=== PATIENT | male | born 1975 | race Caucasian/White ===

== ENCOUNTER 2019-09-15 06:58 | Day surgery (SDC) | payer MEDICAID ==
[2019-09-15] MEDS ORDERED: MIDAZOLAM 2 MG/2 ML VIAL IVP ONE (06:59)
[2019-09-15] MEDS ORDERED: NEOSTIGMINE 1 MG/1 ML 10 ML MDV IVP ONE (06:59)
[2019-09-15] MEDS ORDERED: ROCURONIUM 50 MG/5 ML VIAL IVP ONE (06:59)
[2019-09-15] MEDS ORDERED: DEXAMETHASONE 4 MG/ML VIAL IVP ONE (06:59)
[2019-09-15] MEDS ORDERED: GLYCOPYRROLATE 1 MG/5 ML VIAL IVP ONE (06:59)
[2019-09-15] MEDS ORDERED: PROPOFOL 200 MG/20 ML VIAL IVP ONE (06:59)
[2019-09-15] MEDS ORDERED: KETOROLAC 30 MG/ML VIAL IVP ONE (06:59)
[2019-09-15] MEDS ORDERED: LACTATED RINGERS 1,000 ML IV ONE ×3 (07:14→11:32)
--- NOTE | 2019-09-15 07:46 | ANESTHESIA ---
Pre-Anesthesia VS, & Labs - Diagnosis Bilateral Inguinal Hernias - Procedure Laparoscopic Bilateral Inguinal Hernia repairs Vital Signs: Temp Pulse Resp BP Pulse Ox 36.5 C 63 16 122/90 H 97 09/15/19 07:14 09/15/19 07:14 09/15/19 07:14 09/15/19 07:14 09/15/19 07:14 Height 6 ft 1 in Weight (kg) 82.1 kg - NPO >8 hours Home Medications and Allergies Home Medications: Ambulatory Orders Fluticasone [Flonase] 1 sprays AWILDA DAILY 09/07/19 Ibuprofen [Motrin] 600 mg PO Q6H PRN 09/07/19 Fluticasone [Flonase] 1 sprays AWILDA DAILY 09/07/19 Ibuprofen [Motrin] 600 mg PO Q6H PRN 09/07/19 Allergies/Adverse Reactions: Allergies Allergy/AdvReac Type Severity Reaction Status Date / Time No Known Drug Allergies Allergy Verified 09/07/19 10:46 Anes History & Medical History - Anesthetic History Anesthesia Complications: reports: No previous complications - Medical History Cardiovascular: reports: None Pulmonary: reports: Asthma (childhood) Gastrointestinal: reports: GERD (controlled with diet) Urinary: reports: None Neuro: reports: None Musculoskeletal: reports: Osteoarthritis, Chronic back pain Endocrine/Autoimmune: reports: None Blood Disorders: reports: None Skin: reports: None Smoking Status: Former smoker (quit 3 years ago) Psychosocial: reports: Cannabis (2x per week) - Surgical History Orthopedic: Other (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
[2019-09-15] MEDS ORDERED: CEFAZOLIN SODIUM IN 0.9 % NACL 2 GM/100 ML BAG IV ONE (07:55)
[2019-09-15] MEDS ORDERED: BUPIVACAINE 0.5% PF 30 ML VIAL ONE (08:43)
[2019-09-15] MEDS ORDERED: BUPIVACAINE 0.5% PF 30 ML VIAL INFIL ONE (09:20)
[2019-09-15] MEDS ORDERED: ONDANSETRON 4 MG/2 ML VIAL IVP PRN (11:21)
[2019-09-15] MEDS ORDERED: oxyCODONE 5 MG TABLET PO PRN (11:21)
[2019-09-15] MEDS ORDERED: HYDROmorphone 0.5 MG/0.5 ML SYRINGE IVP PRN (11:21)
--- NOTE | 2019-09-15 11:26 | OPERATIVE REPORT ---
Operative Report - General Planned Procedure: Laparoscopic bilateral inguinal herniorrhaphy Pre-Op Diagnosis: Bilateral inguinal hernia Procedure Performed: Laparoscopic bilateral direct inguinal herniorrhaphy with left inguinal incision to confirm anatomy Post Op Diagnosis: Bilateral direct inguinal hernias - Procedure Note Primary Surgeon: Antwon Ward MD Anesthesia Provider: Lizzeth Keene CRNA Anesthesia Technique: General ET tube, Local (30 mL of half percent Marcaine) IV Fluids (mL): 1,000 Estimated Blood Loss (mL): 5 Drain/Tube Type: Other (None.) Complications: None. - Other Other Information/Narrative: OPERATIVE DESCRIPTION/REPORT: After verbal and written informed consent was obtained detailing the risks of infection, bleeding requiring transfusion with its risks, nerve injury, and , and after I met with the patient confirming the surgery and the site of the surgery, the patient was brought to the operative suite and placed supine on the operating table. Great care was taken to avoid pressure points to prevent pressure necrosis or nerve injury. Monitoring devices were applied along with TEDs and pneumatic compressive stockings (to prevent DVT). The patient received preoperative antibiotics for surgical prophylaxis. Lizzeth Keene CRNA sedated and induced general anesthesia and provided anesthesia care for the entirety of the case. The patient was prepped and draped in the usual sterile manner. The patient was not marked preoperatively since this was a bilateral procedure and laparoscopic. A "time in" then confirmed that the patient was identified with 3 identifiers (name, date and medical record number), the history and physical was in the chart, the signed consent confirming the procedure was in the chart, the patient was in the correct position, the aforementioned prophylactic measures were in place or given, we had the correct personnel and equipment to complete the procedure and that anesthesia, surgery and nursing were given an opportunity to express any concerns. With the agreement of everyone in the room, we proceeded with the operation. A transverse skin incision was made below and to the right of the umbilicus to a length of approximately 3 cm. The incision was carried through the subcutaneous tissue. Bleeders were cauterized. The right rectus sheath was identified and incised lateral to the midline. The preperitoneal space was then developed following insertion of a Spacemaker balloon, which was inflated under direct vision. Following removal of the Spacemaker balloon, a #10 trocar was placed in the preperitoneal space and the preperitoneal space was insufflated with CO2 to a steady state pressure of 15 mmHg. A 10 mm 30 degree laparoscope was inserted in the preperitoneal space. Two #5 trocars were placed 5 cm below the umbilical incision under direct vision medical to the inferior epigastric arteries and without incident. Landmarks including symphysis pubis, right and left José Antonio ligaments and right and left inferior epigastric vessels were identified. Dissection was then continued lateral to the transverse abdominis muscle bilaterally. The right side was addressed first. The internal ring was then explored for the presence of the indirect hernia sac and despite extensive dissection no indirect hernia was found. Exploration of the medial space showed a medial defect consistent with a direct hernia. The left side was then addressed. Again there was the presence of a direct inguinal hernia . However there was a large amount of abnormal tissue in around a potential indirect inguinal hernia site and despite extensive dissection I could not clarify whether or not there was an indirect hernia as well. Due to the unclear anatomy I decided to incise the left inguinal region and dissected down to the canal the way I would normally fix the hernia in an open fashion. This allowed me to determine that there was a very large direct inguinal hernia and no left indirect inguinal hernia. I also remembered that the patient had an undescended testicle on the left and that intervention was required for this when he was in the fourth grade. This is a likely source of the "abnormal" tissue in the inguinal region. As I was reassured that there was no left indirect inguinal hernia I proceeded with the repair. The mesh on the right-hand side was placed first. The mesh used was Covidien ProGrip (Lot # [id number], reference# [id number], use by date 2022-02-26). This mesh was placed to cover the direct inguinal hernia as well as any potential indirect hernia. The mesh was then placed on the left-hand side. The mesh used was [employer]ien ProGrip (Lot # [id number], reference# [id number], use by date 2021-06-28). Again, this mesh was placed to cover the direct inguinal hernia as well as a potential indirect hernia, however I was concerned about the mesh riding down and leaving some of the direct hernia uncovered so I tacked the mesh above the direct hernia with a SecureStrap tacker (Lot # [id number], use by date 2020-02). 3 tacks were placed and none were placed laterally. 10 mL of 1/2% Marcaine was injected into the preperitoneal space, 10 mL of 1/2% Marcaine was injected into the left inguinal incision and then remaining 10 mL at the remaining laparoscopic incisions. The preperitoneal space was then deflated and during the deflation the mesh was watched to ensure that it was sandwiched nicely in place and did not change position. All trocars were withdrawn. The defect in the rectus sheath was closed with two simple 0 Vicryl sutures and a [id number] 0 Vicryl suture. The external oblique was closed using a running 3-0 Vicryl suture. Robin's fascia was approximated using interrupted 3-0 Vicryl suture and the skin was approximated using a 4-0 Monocryl in a running subcuticular fashion. The laparoscopic skin incisions were closed with subcuticular 4-0 Monocryl suture. The prep was washed off and Dermabond was applied at all the incisions. At this point a time out was performed that confirmed that all the counts were correct, the procedure that was performed, the blood loss, the IV fluids administered, and the patients condition. The patient's scrotum was evaluated to ensure that the testicles were well seated within the scrotum and that there was no swelling. [employer] disclaimer: This document was created in part using voice recognition technology. Because of the inherent limitations of the system ([employer]'s [employer] D[employer]ate user manual states that the licensee understands that speech recognition is a statistical process and that recognition errors are inherent in the process), occasional same sounding word substitutions and grammatical errors do occur and persist despite proofreading. Please read this document for context.
[2019-09-15 12:21] VITALS: BP 111/77
[2019-09-15] MEDS ORDERED: oxyCODONE 5 MG TABLET ONE (12:27)
== END 2019-09-15 06:59 | disposition home or self-care (01) ==
LOC: SDS 06:58
PROVIDERS: ATTEND Surgery
PROC: 0YUA4JZ Supplement Bilateral Inguinal Region with Synthetic Substitute, Percutaneous Endoscopic Approach (ICD-10-PCS; principal; 2019-09-15 08:30)
DX: K40.20 Bilateral inguinal hernia, without obstruction or gangrene, not specified as recurrent (principal); Z87.891 Personal history of nicotine dependence
CPT/HCPCS: 49650; A9270; C1781; J0690; J7120

== ENCOUNTER 2020-09-30 16:21 | Outpatient (CLI) | payer MEDICAID | END 2020-09-30 16:22 | disposition home or self-care (01) | LOC: COV 16:21 | PROVIDERS: ATTEND Family Medicine | DX: Z20.828 Contact with and (suspected) exposure to other viral communicable diseases (principal) ==

== ENCOUNTER 2021-04-07 08:00 | Outpatient (CLI) | payer MEDICAID ==
[2021-04-07 18:14] LABS: BASOPHILS % (AUTO) 0.5 %; EOSINOPHILS # (AUTO) 0.1 10^3/uL (0.0-0.7); EOSINOPHILS % (AUTO) 1.7 %; HCT - HEMATOCRIT 41.5 % (42.0-52.0); LYMPHOCYTES # (AUTO) 1.1 10^3/uL (1.5-3.5); LYMPHOCYTES % (AUTO) 16.8 %; MEAN CORPUSCULAR HEMOGLOBIN 29.9 pg (27.0-31.0); MEAN CORPUSCULAR HGB CONC 33.7 g/dL (32.0-36.0); MEAN CORPUSCULAR VOLUME 88.5 fL (80.0-94.0); MEAN PLATELET VOLUME 10.3 fL (7.4-11.4); MONOCYTES # (AUTO) 0.4 10^3/uL (0.0-1.0); MONOCYTES % (AUTO) 5.9 %; NEUTROPHILS % (AUTO) 74.8 %; PLT - PLATELET COUNT 251 10^3/uL (130-450); RED BLOOD COUNT 4.69 10^6/uL (4.70-6.10); RED CELL DISTRIBUTION WIDTH 12.3 % (12.0-15.0); WHITE BLOOD COUNT 6.7 x10^3/uL (4.8-10.8)
[2021-04-07 18:58] LABS: ALBUMIN 4.5 g/dL (3.2-5.5); ALBUMIN/GLOBULIN RATIO 1.6 (1.0-2.2); ALKALINE PHOSPHATASE 61 IU/L (42-121); ALT ALANINE AMINOTRANSFERASE 19 IU/L (10-60); AST ASPARTATE AMINOTRANSFERASE 20 IU/L (10-42); BUN - BLOOD UREA NITROGEN 12 mg/dL (6-20); CALCIUM 8.9 mg/dL (8.5-10.3); CARBON DIOXIDE - CO2 28 mmol/L (21-32); CHLORIDE 101 mmol/L (101-111); CHOL/HDL RATIO 2.5 (<5.0); CHOLESTEROL 127 mg/dL; CREATININE 0.8 mg/dL (0.6-1.2); GFR - MDRD 105 (>89); GLUCOSE 94 mg/dL (70-100); HDL CHOLESTEROL 50 mg/dL; LDL CHOLESTEROL,CALCULATED 67 mg/dL; LDL/HDL RATIO 1.3 (<3.6); POTASSIUM 4.3 mmol/L (3.5-5.0); SODIUM 138 mmol/L (135-145); TOTAL PROTEIN 7.4 g/dL (6.7-8.2); TRIGLYCERIDES 50 mg/dL; VLDL CHOLESTEROL 10 mg/dL
[2021-04-07 19:08] LABS: THYROID STIMULATING HORMONE 1.55 uIU/mL (0.34-5.60)
== END 2021-04-07 23:59 | disposition home or self-care (01) ==
LOC: LAB.WCP 08:00
PROVIDERS: ATTEND Physician Assistant
DX: K59.09 Other constipation (principal); Z79.1 Long term (current) use of non-steroidal anti-inflammatories (NSAID); J30.2 Other seasonal allergic rhinitis; Z87.19 Personal history of other diseases of the digestive system; R10.30 Lower abdominal pain, unspecified; R10.2 Pelvic and perineal pain; K40.90 Unilateral inguinal hernia, without obstruction or gangrene, not specified as recurrent
CPT/HCPCS: 36415; 80053; 80061; 83721; 84443; 85025

== ENCOUNTER 2021-05-23 10:04 | Day surgery (SDC) | payer MEDICAID ==
[2021-05-23] MEDS ORDERED: LACTATED RINGERS 1,000 ML IV ONE (10:12)
--- NOTE | 2021-05-23 12:56 | HISTORY & PHYSICAL EXAMINATION ---
Chief Complaint - Chief Complaint Chief Complaint: abdominal pain History of Present Illness - History Obtained From Records Reviewed: yes History obtained from: pt Exam Limitations: none - History of Present Illness HPI Comment/Other: Lower abdominal discomfort and mild anemia History - Past Medical History Cardiovascular: reports: None Respiratory: reports: Asthma Neuro: reports: None Endocrine/Autoimmune: reports: None GI: reports: GERD : reports: None HEENT: reports: Chronic sinusitis Psych: reports: None Musculoskeletal: reports: Osteoarthritis, Chronic back pain Derm: reports: None MRSA Hx?: No - Past Surgical History Ortho: reports: Other Meds/Allgy - Home Medications Home Medications: Ambulatory Orders Medication Instructions Recorded Confirmed Fluticasone [Flonase] 1 sprays AWILDA DAILY 09/07/19 05/23/21 Ibuprofen [Motrin] 600 mg PO Q6H PRN 09/07/19 05/23/21 - Allergies Allergies/Adverse Reactions: Allergies Allergy/AdvReac Type Severity Reaction Status Date / Time No Known Drug Allergies Allergy Verified 09/07/19 10:46 Review of Systems - Other Findings Other Findings: 10 pt ros as above otherwise unremarkable Exam - Vital Signs Reviewed Vital Signs: Yes Vital Signs: Vital Signs x48h Temp Pulse Resp BP Pulse Ox 05/23/21 10:13 36.5 C 64 16 114/73 97 - Physical Exam General Appearance: positive: Alert Eyes Bilateral: positive: PERRL, EOMI Neck: positive: No JVD Respiratory: positive: Breath sounds nml Cardiovascular: positive: Regular rate & rhythm Abdomen: positive: Non-tender, No distention Neurologic/Psychiatric: positive: Oriented x3 Conclusion/Plan - Problem List (1) Abdominal discomfort Conclusion/Plan: plan colonoscopy. parq held and consent obtained
[2021-05-23] MEDS ORDERED: fentaNYL 250 MCG/5 ML VIAL ONE (13:08)
[2021-05-23] MEDS ORDERED: MIDAZOLAM 2 MG/2 ML VIAL ONE ×4 (13:08→13:42)
[2021-05-23] MEDS ORDERED: PROPOFOL 200 MG/20 ML VIAL IVP ONE (14:17)
[2021-05-23] MEDS ORDERED: LACTATED RINGERS 400 ML IV ONE (14:19)
[2021-05-23 14:45] VITALS: BP 101/76
--- NOTE | 2021-05-23 16:06 | ANESTHESIA ---
Pre-Anesthesia VS, & Labs - Diagnosis change in bowel habits - Procedure colonoscopy with polypectomy Vital Signs: Temp Pulse Resp BP Pulse Ox 36.3 C L 54 L 16 101/76 99 05/23/21 14:19 05/23/21 14:40 05/23/21 14:40 05/23/21 14:40 05/23/21 14:40 Height: 6 ft 1 in Weight (kg): 78 kg Body Mass Index: 22.6 BMI Classification: Healthy weight - NPO >8 hours Home Medications and Allergies Fluticasone [Flonase] 1 sprays AWILDA DAILY 09/07/19 Ibuprofen [Motrin] 600 mg PO Q6H PRN 09/07/19 Allergies/Adverse Reactions: Allergies Allergy/AdvReac Type Severity Reaction Status Date / Time No Known Drug Allergies Allergy Verified 09/07/19 10:46 Anes History & Medical History - Medical History Cardiovascular: reports: None Pulmonary: reports: Asthma Gastrointestinal: reports: GERD Urinary: reports: None Neuro: reports: None Musculoskeletal: reports: Osteoarthritis, Chronic back pain Endocrine/Autoimmune: reports: None Blood Disorders: reports: None Skin: reports: None Smoking Status: Former smoker (quit 3 years ago) Psychosocial: reports: Cannabis Other Past Medical History: called for rescue sedation. History obtained from medical record - Surgical History Orthopedic: reports: Other Exam General: Other (sedated) Plan Anesthesia Type: Total IV (Rescue sedation. Patient has received 10mg versed and 250mcg fentanyl DOG RACES MANAGER.) Consent for Procedure(s) Verified and Reviewed: Yes Code Status: Attempt Resuscitation ASA classification: 2-Mild systemic disease Is this case an emergency?: No
--- NOTE | 2021-05-23 16:07 | ANESTHESIA POST OP EVALUATION ---
Anesthesia Post Eval - Post Anesthesia Eval Vitals: Last Vital Signs Temp 36.3 C L 05/23/21 14:19 Pulse 54 L 05/23/21 14:40 Resp 16 05/23/21 14:40 BP 101/76 05/23/21 14:40 Pulse Ox 99 05/23/21 14:40 CV Function Including HR & BP: Stable Pain Control: Satisfactory Nausea & Vomiting: Negative Mental Status: Baseline Respiratory Status: Airway Patent Hydration Status: Satisfactory Anesthesia Complications: None
== END 2021-05-23 10:05 | disposition home or self-care (01) ==
LOC: SDS 10:04
PROVIDERS: ATTEND Surgery
PROC: 0DBN8ZZ Excision of Sigmoid Colon, Via Natural or Artificial Opening Endoscopic (ICD-10-PCS; 2021-05-23)
PROC: 0DBP8ZZ Excision of Rectum, Via Natural or Artificial Opening Endoscopic (ICD-10-PCS; 2021-05-23)
PROC: 0DBN8ZZ Excision of Sigmoid Colon, Via Natural or Artificial Opening Endoscopic (ICD-10-PCS; 2021-05-23)
PROC: 0DBK8ZZ Excision of Ascending Colon, Via Natural or Artificial Opening Endoscopic (ICD-10-PCS; principal; 2021-05-23 11:00)
DX: D12.2 Benign neoplasm of ascending colon (principal); D12.5 Benign neoplasm of sigmoid colon; K63.5 Polyp of colon; K62.1 Rectal polyp; K57.30 Diverticulosis of large intestine without perforation or abscess without bleeding; K21.9 Gastro-esophageal reflux disease without esophagitis; J45.909 Unspecified asthma, uncomplicated; J32.9 Chronic sinusitis, unspecified; M19.90 Unspecified osteoarthritis, unspecified site; G89.29 Other chronic pain; M54.9 Dorsalgia, unspecified; Z87.891 Personal history of nicotine dependence; Z92.83 Personal history of failed moderate sedation
CPT/HCPCS: 45380; 45385; 88305; J3010; J7120

== ENCOUNTER 2023-01-14 16:41 | Emergency (ER) | payer MEDICAID ==
[2023-01-14 16:49] VITALS: BP 139/89
--- NOTE | 2023-01-14 17:08 | ED Physician Documentation ---
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 He states that he usually uses a push theresa when he gets near the blade and he has been trying out some new glasses and he believes his depth perception may be off. He was able to control the bleeding with direct pressure and comes in now for evaluation and is not up-to-date on his tetanus. 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 Review of Systems Constitutional: denies: Fever Nose: denies: Congestion Throat: denies: Sore throat Respiratory: denies: Cough GI: denies: Vomiting PD PAST MEDICAL HISTORY - Past Medical History Cardiovascular: None Respiratory: Asthma Neuro: None Endocrine/Autoimmune: None GI: GERD : None HEENT: Chronic sinusitis Psych: None Musculoskeletal: Osteoarthritis, Chronic back pain Derm: None - Past Surgical History Ortho: Other - Present Medications Home Medications: Ambulatory Orders Medication Instructions Recorded Confirmed Fluticasone [Flonase] 1 sprays AWILDA DAILY 09/07/19 05/23/21 Ibuprofen [Motrin] 600 mg PO Q6H PRN 09/07/19 05/23/21 - Allergies Allergies/Adverse Reactions: Allergies Allergy/AdvReac Type Severity Reaction Status Date / Time No Known Drug Allergies Allergy Verified 09/07/19 10:46 - Social History Smoking Status: Former smoker (quit 3 years ago) PD ED PE NORMAL - Vitals Vital signs reviewed: Yes (hypertensive ) - General General: Alert and oriented X 3, No acute distress, Well developed/nourished - HEENT HEENT: Atraumatic, PERRL, EOMI - Respiratory Respiratory: No respiratory distress - Derm Derm: Normal color, Warm and dry, No rash - Extremities Extremities: Other (To the right hand there is a laceration to the radial aspect of the thumb distally that involves the skin of of the skin next to the nail. 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, No motor deficit, No sensory deficit, Normal speech Eye Opening: Spontaneous Motor: Obeys Commands Verbal: Oriented GCS Score: 15 - Psych Psych: Normal mood, Normal affect Results - Vitals Vitals: Vital Signs - 24 hr 01/14/23 16:46 Temperature 36.7 C Heart Rate 80 Respiratory 18 Rate Blood Pressure 139/89 H O2 Saturation 98 Oxygen O2 Source Room air Procedures - Laceration (location) left thumb Wound type: Flap, Superficial, Clean Neurovascular status: Sensory intact, Motor intact, Vascular intact Wound preparation: Hibiclens, Irrigated copiously NS, Wound explored, To the base Skin layer closure: Dermabond, Steri strips Other: Patient tolerated well, No complications, Neurovascular intact, Dressing applied, Tetanus booster given PD Medical Decision Making - ED course Complexity details: considered differential, d/w patient, d/w family ED course: 47-year-old male with a superficial laceration of the flap of skin to the radial aspect of the right thumb. This is repaired with tincture of benzoin, Steri- Strips and Dermabond. The patient is given a tetanus booster. Departure - Departure Disposition: 01 Home, Self Care Clinical Impression: Laceration of right thumb Qualifiers: Encounter type: initial encounter Damage to nail status: without damage Foreign body presence: without foreign body Qualified Code(s): S61.011A - Laceration without foreign body of right thumb without damage to nail, initial encounter Condition: Stable Instructions: ED Laceration Ext Skin Glue, ED Laceration Ext Sutr Stap Tape Follow-Up: [facility] [Provider Group] Comments: Jose, today it looks like you are isabel and only have a superficial laceration to your thumb. This may hurt and may take a week or so to heal but will heal up fine. The wound is held together now with steri-strips and Dermabond and these will wear off in about 5 to 6 days. If you use your hands a lot it may come off within the day. If this happens place a Band-Aid over the finger and eventually this will heal. Keep it clean and dry.
[2023-01-14] MEDS ORDERED: TETANUS/DIPHTHERIA/PERTUSSIS 0.5 ML SYRINGE IM ONE (17:13)
--- OUTSIDE RECORDS SUMMARY | 2023-01-14 17:25 | EXTERNAL MEDICAL SUMMARY RPT | Continuity of Care Document ---
:1975 Author Organization [facility] Address [address] [place] [address] Phone Care Team Providers Name Role Phone Rubia Kamara Unavailable Unavailable Allergies No information. Encounters No information. Functional Status No information. Immunizations No information. Medications date description facility 2023-01-01 00:00 Fluticasone [facility] Problems date description facility 2023-01-01 00:00 [facility] 2023-01-01 00:00 [facility] Procedures No information. Results/Labs test date author facility value unit interpret ation Result panel 1 (unknown) (no (unknown) (unknown) (no value) (units (unk nown) date) unknown) (unknown) (no (unknown) (unknown) 12/21/22 (units (unkno wn) date) unknown) (unknown) (no (unknown) (unknown) [id number] (units (unkno wn) date) unknown) (unknown) (no (unknown) (unknown) Age/Sex: 47 / M (units (unknown) date) Date of Service: unknown) (unknown) (no (unknown) (unknown) Allergies (units (unkn own) date) unknown) (unknown) (no (unknown) (unknown) [facility] (units (unknown) date) Medicine unknown) (unknown) (no (unknown) (unknown) [place] (units ( unknown) date) [id number] unknown) (unknown) (no (unknown) (unknown) Attending Dr: (units ( unknown) date) Rubia Kamara unknown) NURSING CARE ATTENDANT (unknown) (no (unknown) (unknown) : 1975 (units (unknown) date) Acct:[id number] unknown) (unknown) (no (unknown) (unknown) Dept at (units (unkno wn) date) . unknown) (unknown) (no (unknown) (unknown) Documented By: (units (unknown) date) Rubia Kamara unknown) [facility] 12/21/22 1347 (unknown) (no (unknown) (unknown) Draft (units (unkno wn) date) unknown) (unknown) (no (unknown) (unknown) Intake Note: (units (u nknown) date) unknown) (unknown) (no (unknown) (unknown) Intake performed (units (unknown) date) by: unknown) Armando Roe (unknown) (no (unknown) (unknown) Intake (units (unkno wn) date) unknown) (unknown) (no (unknown) (unknown) Intake- Clincial (units (unknown) date) Staff unknown) (unknown) (no (unknown) (unknown) Loc: [facility] (units (unkno wn) date) unknown) (unknown) (no (unknown) (unknown) Medications (units (un known) date) unknown) (unknown) (no (unknown) (unknown) No Known Drug (units ( unknown) date) Allergies Allergy unknown) (Unverified 12/21/22 13:49) (unknown) (no (unknown) (unknown) No Known Home (units ( unknown) date) Medications unknown) 12/21/22 [History Confirmed 12/21/22] (unknown) (no (unknown) (unknown) PFSH (units (unkno wn) date) unknown) (unknown) (no (unknown) (unknown) Patient: (units (unkno wn) date) Jose Cevallos unknown) MR#: [id number] (unknown) (no (unknown) (unknown) Pt presents with (units (unknown) date) a possible sinus unknown) infection. Was over a cold and this morning (unknown) (no (unknown) (unknown) Reason For Visit (units (unknown) date) unknown) (unknown) (no (unknown) (unknown) Signed By: (units (unk nown) date) unknown) (unknown) (no (unknown) (unknown) Smoking Status: (units (unknown) date) Former smoker unknown) (unknown) (no (unknown) (unknown) This note may (units ( unknown) date) have been all or unknown) partially generated using voice recognition (unknown) (no (unknown) (unknown) Tobacco + (units (unkn own) date) Substance Use unknown) (unknown) (no (unknown) (unknown) Tobacco Status (units (unknown) date) unknown) (unknown) (no (unknown) (unknown) Visit Reasons: (units (unknown) date) poss sinus unknown) infection (unknown) (no (unknown) (unknown) [facility] In Clinic (units (unknown) date) Visit unknown) (unknown) (no (unknown) (unknown) have occurred. (units (unknown) date) If there are any unknown) questions, please contact the Medical Records (unknown) (no (unknown) (unknown) may occur. (units (unk nown) date) Occasional unknown) wrong-word or 'sound-alike' substitutions may have (unknown) (no (unknown) (unknown) occurred due to (units (unknown) date) the inherent unknown) limitations of voice recognition software. Please (unknown) (no (unknown) (unknown) read the note (units ( unknown) date) carefully and unknown) recognize, using context, where these substitutions (unknown) (no (unknown) (unknown) software. (units (unkn own) date) Although every unknown) effort is made to edit content, director of sales support errors (unknown) (no (unknown) (unknown) woke up with (units (u nknown) date) mucus. unknown) Result panel 2 (unknown) (no (unknown) (unknown) (no value) (units (unk nown) date) unknown) (unknown) (no (unknown) (unknown) 12/21/22 (units (unkno wn) date) unknown) (unknown) (no (unknown) (unknown) 13:55 (units (unkno wn) date) unknown) (unknown) (no (unknown) (unknown) [id number] (units (unkno wn) date) unknown) (unknown) (no (unknown) (unknown) Age/Sex: 47 / M (units (unknown) date) Date of Service: unknown) (unknown) (no (unknown) (unknown) Allergies (units (unkn own) date) unknown) (unknown) (no (unknown) (unknown) [facility] (units (unknown) date) Medicine unknown) (unknown) (no (unknown) (unknown) [place], [place] (units ( unknown) date) [id number] unknown) (unknown) (no (unknown) (unknown) Attending Dr: (units ( unknown) date) Rubia Kamara unknown) NURSING CARE ATTENDANT (unknown) (no (unknown) (unknown) BMI 23.8 (units (unkno wn) date) unknown) (unknown) (no (unknown) (unknown) BP 124/80 (units (unkn own) date) unknown) (unknown) (no (unknown) (unknown) Blood Pressure (units (unknown) date) Location Lt unknown) brachial (unknown) (no (unknown) (unknown) : 1975 (units (unknown) date) Acct:[id number] unknown) (unknown) (no (unknown) (unknown) Dept at (units (unkno wn) date) . unknown) (unknown) (no (unknown) (unknown) Documented By: (units (unknown) date) Rubia Kamara unknown) NURSING CARE ATTENDANT 12/21/22 1347 (unknown) (no (unknown) (unknown) Draft (units (unkno wn) date) unknown) (unknown) (no (unknown) (unknown) Height 6 ft 2 in (units (unknown) date) unknown) (unknown) (no (unknown) (unknown) Intake Note: (units (u nknown) date) unknown) (unknown) (no (unknown) (unknown) Intake performed (units (unknown) date) by: unknown) Armando Roe (unknown) (no (unknown) (unknown) Intake (units (unkno wn) date) unknown) (unknown) (no (unknown) (unknown) Intake- Clincial (units (unknown) date) Staff unknown) (unknown) (no (unknown) (unknown) Loc: [facility] (units (unkno wn) date) unknown) (unknown) (no (unknown) (unknown) Medications (units (un known) date) unknown) (unknown) (no (unknown) (unknown) No Known Drug (units ( unknown) date) Allergies Allergy unknown) (Unverified 12/21/22 13:49) (unknown) (no (unknown) (unknown) No Known Home (units ( unknown) date) Medications unknown) 12/21/22 [History Confirmed 12/21/22] (unknown) (no (unknown) (unknown) Oxygen Delivery (units (unknown) date) Method room air unknown) (unknown) (no (unknown) (unknown) [facility] (units (unkno wn) date) unknown) (unknown) (no (unknown) (unknown) Patient: (units (unkno wn) date) Jose Cevallos unknown) MR#: [id number] (unknown) (no (unknown) (unknown) Position Sitting (units (unknown) date) unknown) (unknown) (no (unknown) (unknown) Pt presents with (units (unknown) date) a possible sinus unknown) infection. Was over a cold and this morning (unknown) (no (unknown) (unknown) Pulse 54 L (units (unk nown) date) unknown) (unknown) (no (unknown) (unknown) Pulse Oximetry (units (unknown) date) (%) 99 unknown) (unknown) (no (unknown) (unknown) Pulse Source (units (u nknown) date) Monitor unknown) (unknown) (no (unknown) (unknown) Reason For Visit (units (unknown) date) unknown) (unknown) (no (unknown) (unknown) Respiration 14 (units (unknown) date) unknown) (unknown) (no (unknown) (unknown) Signed By: (units (unk nown) date) unknown) (unknown) (no (unknown) (unknown) Smoking Status: (units (unknown) date) Former smoker unknown) (unknown) (no (unknown) (unknown) Temp 97.8 F (units (un known) date) unknown) (unknown) (no (unknown) (unknown) Temp Source Oral (units (unknown) date) unknown) (unknown) (no (unknown) (unknown) This note may (units ( unknown) date) have been all or unknown) partially generated using voice recognition (unknown) (no (unknown) (unknown) Tobacco + (units (unkn own) date) Substance Use unknown) (unknown) (no (unknown) (unknown) Tobacco Status (units (unknown) date) unknown) (unknown) (no (unknown) (unknown) Visit Reasons: (units (unknown) date) poss sinus unknown) infection (unknown) (no (unknown) (unknown) Vitals (units (unkno wn) date) unknown) (unknown) (no (unknown) (unknown) Walk In Clinic (units (unknown) date) Visit unknown) (unknown) (no (unknown) (unknown) Weight 185 lb 3 (units (unknown) date) oz unknown) (unknown) (no (unknown) (unknown) have occurred. (units (unknown) date) If there are any unknown) questions, please contact the Medical Records (unknown) (no (unknown) (unknown) may occur. (units (unk nown) date) Occasional unknown) wrong-word or 'sound-alike' substitutions may have (unknown) (no (unknown) (unknown) occurred due to (units (unknown) date) the inherent unknown) limitations of voice recognition software. Please (unknown) (no (unknown) (unknown) read the note (units ( unknown) date) carefully and unknown) recognize, using context, where these substitutions (unknown) (no (unknown) (unknown) software. (units (unkn own) date) Although every unknown) effort is made to edit content, director of sales support errors (unknown) (no (unknown) (unknown) woke up with (units (u nknown) date) mucus. unknown) Result panel 3 (unknown) (no (unknown) (unknown) (no value) (units (unk nown) date) unknown) (unknown) (no (unknown) (unknown) (1) Sinus (units (unkn own) date) congestion: unknown) (unknown) (no (unknown) (unknown) 12/21/22 1424 (units ( unknown) date) unknown) (unknown) (no (unknown) (unknown) 12/21/22 (units (unkno wn) date) unknown) (unknown) (no (unknown) (unknown) 13:55 (units (unkno wn) date) unknown) (unknown) (no (unknown) (unknown) [id number] (units (unkno wn) date) unknown) (unknown) (no (unknown) (unknown) Age/Sex: 47 / M (units (unknown) date) Date of Service: unknown) (unknown) (no (unknown) (unknown) Alignment and (units ( unknown) date) Position: unknown) alignment normal (unknown) (no (unknown) (unknown) Allergies (units (unkn own) date) unknown) (unknown) (no (unknown) (unknown) [facility] (units (unknown) date) Medicine unknown) (unknown) (no (unknown) (unknown) [place], [place] (units ( unknown) date) [id number] unknown) (unknown) (no (unknown) (unknown) Assessment + Plan (units (unknown) date) unknown) (unknown) (no (unknown) (unknown) Attending Dr: (units ( unknown) date) Rubia Kamara unknown) NURSING CARE ATTENDANT (unknown) (no (unknown) (unknown) Auscultation: (units ( unknown) date) clear to unknown) auscultation bilaterally (unknown) (no (unknown) (unknown) BMI 23.8 (units (unkno wn) date) unknown) (unknown) (no (unknown) (unknown) BP 124/80 (units (unkn own) date) unknown) (unknown) (no (unknown) (unknown) Blood Pressure (units (unknown) date) Location Lt unknown) brachial (unknown) (no (unknown) (unknown) Chief Complaint (units (unknown) date) unknown) (unknown) (no (unknown) (unknown) Chief Complaint: (units (unknown) date) Sinus congestion unknown) (unknown) (no (unknown) (unknown) Const (units (unkno wn) date) unknown) (unknown) (no (unknown) (unknown) : 1975 (units (unknown) date) Acct:[id number] unknown) (unknown) (no (unknown) (unknown) Denies fever, (units ( unknown) date) cough, ear pain, unknown) sore throat, shortness of breath or chest pain. (unknown) (no (unknown) (unknown) Dept at (units (unkno wn) date) . unknown) (unknown) (no (unknown) (unknown) Details: (units (unkno wn) date) unknown) (unknown) (no (unknown) (unknown) Documented By: (units (unknown) date) Rubia Kamara unknown) NURSING CARE ATTENDANT 12/21/22 1347 (unknown) (no (unknown) (unknown) Ears: hearing (units ( unknown) date) grossly normal unknown) bilaterally, external ears normal and TM's normal (unknown) (no (unknown) (unknown) Effort + (units (unkno wn) date) Inspection: normal unknown) respiratory effort (unknown) (no (unknown) (unknown) Exam Narrative (units (unknown) date) unknown) (unknown) (no (unknown) (unknown) Exam Narrative: (units (unknown) date) unknown) (unknown) (no (unknown) (unknown) Exam (units (unkno wn) date) unremarkable. unknown) Patient encouraged to continue dneu-zek-dwiegil medications (unknown) (no (unknown) (unknown) Exam (units (unkno wn) date) unknown) (unknown) (no (unknown) (unknown) Eyes (units (unkno wn) date) unknown) (unknown) (no (unknown) (unknown) Face and sinus: (units (unknown) date) normal facial exam unknown) (unknown) (no (unknown) (unknown) Flonase b.i.d. as (units (unknown) date) needed. Also take unknown) daily allergy medication. Neti pot, steam, (unknown) (no (unknown) (unknown) General: (units (unkno wn) date) appearance normal, unknown) both eyes and all related structures (unknown) (no (unknown) (unknown) General: (units (o wn) date) cooperative, unknown) healthy appearing, comfortable and no acute distress (unknown) (no (unknown) (unknown) General: no (units (un known) date) rashes or lesions unknown) noted (unknown) (no (unknown) (unknown) HENMT (units (unkno wn) date) unknown) (unknown) (no (unknown) (unknown) HPI (units (unkno wn) date) unknown) (unknown) (no (unknown) (unknown) He does state (units ( unknown) date) that he was unknown) feeling much better until this morning. Patient was (unknown) (no (unknown) (unknown) Head: normal to (units (unknown) date) inspection unknown) (unknown) (no (unknown) (unknown) Height 187.96 cm (units (unknown) date) unknown) (unknown) (no (unknown) (unknown) Intake Note: (units (u nknown) date) unknown) (unknown) (no (unknown) (unknown) Intake performed (units (unknown) date) by: Armando Roe unknown) (unknown) (no (unknown) (unknown) Intake (units (unkno wn) date) unknown) (unknown) (no (unknown) (unknown) Intake- Clincial (units (unknown) date) Staff unknown) (unknown) (no (unknown) (unknown) Loc: [facility] (units (unkno wn) date) unknown) (unknown) (no (unknown) (unknown) Medications (units (un known) date) unknown) (unknown) (no (unknown) (unknown) Mouth: oral (units (un known) date) mucosae normal unknown) (unknown) (no (unknown) (unknown) Neck (units (unkno wn) date) unknown) (unknown) (no (unknown) (unknown) Neck: normal (units (u nknown) date) visual inspection, unknown) full ROM and no lymphadenopathy (unknown) (no (unknown) (unknown) No Known Drug (units ( unknown) date) Allergies Allergy unknown) (Unverified 12/21/22 13:49) (unknown) (no (unknown) (unknown) No Known Home (units ( unknown) date) Medications unknown) 12/21/22 [History Confirmed 12/21/22] (unknown) (no (unknown) (unknown) Nose: external (units (unknown) date) nose normal unknown) (unknown) (no (unknown) (unknown) Oxygen Delivery (units (unknown) date) Method room air unknown) (unknown) (no (unknown) (unknown) PFSH (units (unkno wn) date) unknown) (unknown) (no (unknown) (unknown) Patient is alert, (units (unknown) date) oriented and unknown) comfortable. (unknown) (no (unknown) (unknown) Patient presents (units (unknown) date) to walk-in clinic unknown) with complaints of possible sinus infection. (unknown) (no (unknown) (unknown) Patient reports (units (unknown) date) that this morning unknown) he had bright yellow nasal discharge. In the (unknown) (no (unknown) (unknown) Patient states on (units (unknown) date) and off he is had unknown) viral like symptoms for the last few weeks. (unknown) (no (unknown) (unknown) Patient: (units (unkno wn) date) Jose Cevallos MR#: unknown) [id number] (unknown) (no (unknown) (unknown) Plan (units (unkno wn) date) unknown) (unknown) (no (unknown) (unknown) Position Sitting (units (unknown) date) unknown) (unknown) (no (unknown) (unknown) Pt presents with (units (unknown) date) a possible sinus unknown) infection. Was over a cold and this morning (unknown) (no (unknown) (unknown) Pulse 54 L (units (unk nown) date) unknown) (unknown) (no (unknown) (unknown) Pulse Oximetry (units (unknown) date) (%) 99 unknown) (unknown) (no (unknown) (unknown) Pulse Source (units (u nknown) date) Monitor unknown) (unknown) (no (unknown) (unknown) Reason For Visit (units (unknown) date) unknown) (unknown) (no (unknown) (unknown) Resp (units (unkno wn) date) unknown) (unknown) (no (unknown) (unknown) Respiration 14 (units (unknown) date) unknown) (unknown) (no (unknown) (unknown) Signed By: (units (unk nown) date) <Electronically unknown) signed by Rubia Kamara> (unknown) (no (unknown) (unknown) Signed (units (unkno wn) date) unknown) (unknown) (no (unknown) (unknown) Skin (units (unkno wn) date) unknown) (unknown) (no (unknown) (unknown) Smoking Status: (units (unknown) date) Former smoker unknown) (unknown) (no (unknown) (unknown) Teeth and (units (unkn own) date) gingiva: dentition unknown) normal (unknown) (no (unknown) (unknown) Temp 97.8 F (units (un known) date) unknown) (unknown) (no (unknown) (unknown) Temp Source Oral (units (unknown) date) unknown) (unknown) (no (unknown) (unknown) This note may (units ( unknown) date) have been all or unknown) partially generated using voice recognition (unknown) (no (unknown) (unknown) Throat: posterior (units (unknown) date) oropharynx normal unknown) (unknown) (no (unknown) (unknown) Tobacco + (units (unkn own) date) Substance Use unknown) (unknown) (no (unknown) (unknown) Tobacco Status (units (unknown) date) unknown) (unknown) (no (unknown) (unknown) Visit Reasons: (units (unknown) date) poss sinus unknown) infection (unknown) (no (unknown) (unknown) Visual Shaw: (units (unknown) date) normal visual unknown) shaw by confrontation (unknown) (no (unknown) (unknown) Vitals (units (unkno wn) date) unknown) (unknown) (no (unknown) (unknown) Walk In Clinic (units (unknown) date) Visit unknown) (unknown) (no (unknown) (unknown) Weight 84 kg (units (u nknown) date) unknown) (unknown) (no (unknown) (unknown) bilaterally (units (un known) date) unknown) (unknown) (no (unknown) (unknown) have occurred. If (units (unknown) date) there are any unknown) questions, please contact the Medical Records (unknown) (no (unknown) (unknown) having (units (unkno wn) date) significant runny unknown) nose, he does use Flonase every day. Now he feels dry (unknown) (no (unknown) (unknown) in his sinuses. (units (unknown) date) Patient unknown) occasionally takes antihistamines for allergies. (unknown) (no (unknown) (unknown) may occur. (units (unk nown) date) Occasional unknown) wrong-word or 'sound-alike' substitutions may have (unknown) (no (unknown) (unknown) nasal rinses. (units ( unknown) date) Return to the unknown) emergency department if symptoms worsen, new (unknown) (no (unknown) (unknown) occurred due to (units (unknown) date) the inherent unknown) limitations of voice recognition software. Please (unknown) (no (unknown) (unknown) past he has (units (un known) date) thought that this unknown) is possible beginning of a sinus infection. (unknown) (no (unknown) (unknown) read the note (units ( unknown) date) carefully and unknown) recognize, using context, where these substitutions (unknown) (no (unknown) (unknown) software. (units (unkn own) date) Although every unknown) effort is made to edit content, director of sales support errors (unknown) (no (unknown) (unknown) symptoms develop. (units (unknown) date) Follow-up with unknown) primary care as needed (unknown) (no (unknown) (unknown) woke up with (units (u nknown) date) mucus. unknown) Result panel 4 (unknown) (no (unknown) (unknown) (no value) (units (unk nown) date) unknown) (unknown) (no (unknown) (unknown) 01/01/23 (units (unkno wn) date) unknown) (unknown) (no (unknown) (unknown) [id number] (units (unkno wn) date) unknown) (unknown) (no (unknown) (unknown) 47 year old male (units (unknown) date) presents to unknown) clinic to establish care. (unknown) (no (unknown) (unknown) Age/Sex: 47 / M (units (unknown) date) Date of Service: unknown) (unknown) (no (unknown) (unknown) Allergies (units (unkn own) date) unknown) (unknown) (no (unknown) (unknown) [place], [place] (units ( unknown) date) [id number] unknown) (unknown) (no (unknown) (unknown) Attending Dr: (units ( unknown) date) Juanito Chapman D.O. unknown) (unknown) (no (unknown) (unknown) : 1975 (units (unknown) date) Acct:[id number] unknown) (unknown) (no (unknown) (unknown) Dept at (units (unkno wn) date) . unknown) (unknown) (no (unknown) (unknown) Documented By: (units (unknown) date) Juanito Chapman unknown) 01/01/23 1250 (unknown) (no (unknown) (unknown) Draft (units (unkno wn) date) unknown) (unknown) (no (unknown) (unknown) [facility] (units (unknown) date) Office Visit unknown) (unknown) (no (unknown) (unknown) [facility]) (unknown) (no (unknown) (unknown) Health (units (unkno wn) date) Management unknown) reviewed with patient: Yes (unknown) (no (unknown) (unknown) Health (units (unkno wn) date) Management unknown) (unknown) (no (unknown) (unknown) Intake Note: (units (u nknown) date) unknown) (unknown) (no (unknown) (unknown) Intake performed (units (unknown) date) by: Sue Galan unknown) (unknown) (no (unknown) (unknown) Intake (units (unkno wn) date) unknown) (unknown) (no (unknown) (unknown) Intake- Clincial (units (unknown) date) Staff unknown) (unknown) (no (unknown) (unknown) Loc: [facility] (units (unkno wn) date) unknown) (unknown) (no (unknown) (unknown) No Known Drug (units ( unknown) date) Allergies Allergy unknown) (Unverified 01/01/23 12:51) (unknown) (no (unknown) (unknown) PFSH (units (unkno wn) date) unknown) (unknown) (no (unknown) (unknown) Patient: (units (unkno wn) date) Jose Cevallos unknown) MR#: [id number] (unknown) (no (unknown) (unknown) Reason For Visit (units (unknown) date) unknown) (unknown) (no (unknown) (unknown) Signed By: (units (unk nown) date) unknown) (unknown) (no (unknown) (unknown) Smoking Status: (units (unknown) date) Former smoker unknown) (unknown) (no (unknown) (unknown) This note may (units ( unknown) date) have been all or unknown) partially generated using voice recognition (unknown) (no (unknown) (unknown) Tobacco + (units (unkn own) date) Substance Use unknown) (unknown) (no (unknown) (unknown) Tobacco Status (units (unknown) date) unknown) (unknown) (no (unknown) (unknown) Visit Reasons: (units (unknown) date) TOBACCO BALER, History of unknown) Groin and oblique hernia 02 (unknown) (no (unknown) (unknown) have occurred. (units (unknown) date) If there are any unknown) questions, please contact the Medical Records (unknown) (no (unknown) (unknown) may occur. (units (unk nown) date) Occasional unknown) wrong-word or 'sound-alike' substitutions may have (unknown) (no (unknown) (unknown) occurred due to (units (unknown) date) the inherent unknown) limitations of voice recognition software. Please (unknown) (no (unknown) (unknown) read the note (units ( unknown) date) carefully and unknown) recognize, using context, where these substitutions (unknown) (no (unknown) (unknown) software. (units (unkn own) date) Although every unknown) effort is made to edit content, director of sales support errors Result panel 5 (unknown) (no (unknown) (unknown) (no value) (units (unk nown) date) unknown) (unknown) (no (unknown) (unknown) 01/01/23 (units (unkno wn) date) unknown) (unknown) (no (unknown) (unknown) 12:54 (units (unkno wn) date) unknown) (unknown) (no (unknown) (unknown) [id number] (units (unkno wn) date) unknown) (unknown) (no (unknown) (unknown) 47 year old male (units (unknown) date) presents to unknown) clinic to establish care. (unknown) (no (unknown) (unknown) Age/Sex: 47 / M (units (unknown) date) Date of Service: unknown) (unknown) (no (unknown) (unknown) Allergies (units (unkn own) date) unknown) (unknown) (no (unknown) (unknown) [place] (units ( unknown) date) [id number] unknown) (unknown) (no (unknown) (unknown) Attending Dr: (units ( unknown) date) Juanito MaierOJosh unknown) (unknown) (no (unknown) (unknown) BMI 23.6 (units (unkno wn) date) unknown) (unknown) (no (unknown) (unknown) BP 129/79 (units (unkn own) date) unknown) (unknown) (no (unknown) (unknown) Blood Pressure (units (unknown) date) Location Lt unknown) brachial (unknown) (no (unknown) (unknown) : 1975 (units (unknown) date) Acct:[id number] unknown) (unknown) (no (unknown) (unknown) Dept at (units (unkno wn) date) . unknown) (unknown) (no (unknown) (unknown) Documented By: (units (unknown) date) Juanito Chapman unknown) 01/01/23 1250 (unknown) (no (unknown) (unknown) Draft (units (unkno wn) date) unknown) (unknown) (no (unknown) (unknown) Family Practice (units (unknown) date) Office Visit unknown) (unknown) (no (unknown) (unknown) [facility] (units (unknown[facility] date[facility] unknown) (unknown) (no (unknown) (unknown) Health (units (unkno wn) date) Management unknown) reviewed with patient: Yes (unknown) (no (unknown) (unknown) Health (units (unkno wn) date) Management unknown) (unknown) (no (unknown) (unknown) Height 6 ft 2 in (units (unknown) date) unknown) (unknown) (no (unknown) (unknown) Intake Note: (units (u nknown) date) unknown) (unknown) (no (unknown) (unknown) Intake performed (units (unknown) date) by: Sue Galan unknown) (unknown) (no (unknown) (unknown) Intake (units (unkno wn) date) unknown) (unknown) (no (unknown) (unknown) Intake- Clincial (units (unknown) date) Staff unknown) (unknown) (no (unknown) (unknown) Loc: [facility] (units (unkno wn) date) unknown) (unknown) (no (unknown) (unknown) Medications (units (un known) date) unknown) (unknown) (no (unknown) (unknown) No Known Drug (units ( unknown) date) Allergies Allergy unknown) (Unverified 01/01/23 12:51) (unknown) (no (unknown) (unknown) Oxygen Delivery (units (unknown) date) Method room air unknown) (unknown) (no (unknown) (unknown) PFSH (units (unkno wn) date) unknown) (unknown) (no (unknown) (unknown) Patient: (units (unkno wn) date) Jose Cevallos unknown) MR#: [id number] (unknown) (no (unknown) (unknown) Position Sitting (units (unknown) date) unknown) (unknown) (no (unknown) (unknown) Pulse 69 (units (unkno wn) date) unknown) (unknown) (no (unknown) (unknown) Pulse Oximetry (units (unknown) date) (%) 98 unknown) (unknown) (no (unknown) (unknown) Pulse Source (units (u nknown) date) Monitor unknown) (unknown) (no (unknown) (unknown) Reason For Visit (units (unknown) date) unknown) (unknown) (no (unknown) (unknown) Relief) 2 spray (units (unknown) date) intranasal DAILY unknown) 01/01/23 [History Confirmed 01/01/23] (unknown) (no (unknown) (unknown) Signed By: (units (unk nown) date) unknown) (unknown) (no (unknown) (unknown) Smoking Status: (units (unknown) date) Former smoker unknown) (unknown) (no (unknown) (unknown) Temp 97.0 F L (units ( unknown) date) unknown) (unknown) (no (unknown) (unknown) Temp Source (units (un known) date) Temporal Artery unknown) Scan (unknown) (no (unknown) (unknown) This note may (units ( unknown) date) have been all or unknown) partially generated using voice recognition (unknown) (no (unknown) (unknown) Tobacco + (units (unkn own) date) Substance Use unknown) (unknown) (no (unknown) (unknown) Tobacco Status (units (unknown) date) unknown) (unknown) (no (unknown) (unknown) Visit Reasons: (units (unknown) date) TOBACCO BALER, History of unknown) Groin and oblique hernia 02 (unknown) (no (unknown) (unknown) Vitals (units (unkno wn) date) unknown) (unknown) (no (unknown) (unknown) Weight 184 lb (units ( unknown) date) unknown) (unknown) (no (unknown) (unknown) 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 unknown) (unknown) (no (unknown) (unknown) due for (units (unkno wn) date) colonoscopy. unknown) after his first one he was told to get them yearly. (unknown) (no (unknown) (unknown) fluticasone (units (un known) date) propionate 50 unknown) mcg/actuation nasal spray,suspension (Flonase Allergy (unknown) (no (unknown) (unknown) have occurred. (units (unknown) date) If there are any unknown) questions, please contact the Medical Records (unknown) (no (unknown) (unknown) hernia surgery (units (unknown) date) but never gotten unknown) better. (unknown) (no (unknown) (unknown) ibuprofen 200 mg (units (unknown) date) capsule 400 mg PO unknown) BID PRN 01/01/23 [History Confirmed 01/01/23] (unknown) (no (unknown) (unknown) may occur. (units (unk nown) date) Occasional unknown) wrong-word or 'sound-alike' substitutions may have (unknown) (no (unknown) (unknown) occurred due to (units (unknown) date) the inherent unknown) limitations of voice recognition software. Please (unknown) (no (unknown) (unknown) read the note (units ( unknown) date) carefully and unknown) recognize, using context, where these substitutions (unknown) (no (unknown) (unknown) software. (units (unkn own) date) Although every unknown) effort is made to edit content, director of sales support errors Result panel 6 (unknown) (no (unknown) (unknown) (no value) (units (unk nown) date) unknown) (unknown) (no (unknown) (unknown) 01/01/23 (units (unkno wn) date) unknown) (unknown) (no (unknown) (unknown) 12:54 (units (unkno wn) date) unknown) (unknown) (no (unknown) (unknown) [id number] (units (unkno wn) date) unknown) (unknown) (no (unknown) (unknown) 47 year old male (units (unknown) date) presents to unknown) clinic to establish care. (unknown) (no (unknown) (unknown) Age/Sex: 47 / M (units (unknown) date) Date of Service: unknown) (unknown) (no (unknown) (unknown) Allergies (units (unkn own) date) unknown) (unknown) (no (unknown) (unknown) [place] (units ( unknown) date) [id number] unknown) (unknown) (no (unknown) (unknown) Attending Dr: (units ( unknown) date) Juanito Chapman D.O. unknown) (unknown) (no (unknown) (unknown) BMI 23.6 (units (unkno wn) date) unknown) (unknown) (no (unknown) (unknown) BP 129/79 (units (unkn own) date) unknown) (unknown) (no (unknown) (unknown) Blood Pressure (units (unknown) date) Location Lt unknown) brachial (unknown) (no (unknown) (unknown) : 1975 (units (unknown) date) Acct:[id number] unknown) (unknown) (no (unknown) (unknown) Dept at (units (unkno wn) date) . unknown) (unknown) (no (unknown) (unknown) Documented By: (units (unknown) date) Juanito Chapman unknown) 01/01/23 1250 (unknown) (no (unknown) (unknown) Draft (units (unkno wn) date) unknown) (unknown) (no (unknown) (unknown) Family Practice (units (unknown) date) Office Visit unknown) (unknown) (no (unknown) (unknown) [facility] (units ([facility] date[facility] unknown) (unknown) (no (unknown) (unknown) Health (units (unkno wn) date) Management unknown) reviewed with patient: Yes (unknown) (no (unknown) (unknown) Health (units (unkno wn) date) Management unknown) (unknown) (no (unknown) (unknown) Height 6 ft 2 in (units (unknown) date) unknown) (unknown) (no (unknown) (unknown) Intake Note: (units (u nknown) date) unknown) (unknown) (no (unknown) (unknown) Intake performed (units (unknown) date) by: Sue Galan unknown) (unknown) (no (unknown) (unknown) Intake (units (unkno wn) date) unknown) (unknown) (no (unknown) (unknown) Intake- Clincial (units (unknown) date) Staff unknown) (unknown) (no (unknown) (unknown) Loc: [facility] (units (unkno wn) date) unknown) (unknown) (no (unknown) (unknown) Medications (units (un known) date) unknown) (unknown) (no (unknown) (unknown) No Known Drug (units ( unknown) date) Allergies Allergy unknown) (Unverified 01/01/23 12:51) (unknown) (no (unknown) (unknown) Oxygen Delivery (units (unknown) date) Method room air unknown) (unknown) (no (unknown) (unknown) PFSH (units (unkno wn) date) unknown) (unknown) (no (unknown) (unknown) Patient: (units (unkno wn) date) Jose Cevallos unknown) MR#: [id number] (unknown) (no (unknown) (unknown) Position Sitting (units (unknown) date) unknown) (unknown) (no (unknown) (unknown) Pulse 69 (units (unkno wn) date) unknown) (unknown) (no (unknown) (unknown) Pulse Oximetry (units (unknown) date) (%) 98 unknown) (unknown) (no (unknown) (unknown) Pulse Source (units (u nknown) date) Monitor unknown) (unknown) (no (unknown) (unknown) Reason For Visit (units (unknown) date) unknown) (unknown) (no (unknown) (unknown) Relief) 2 spray (units (unknown) date) intranasal DAILY unknown) 01/01/23 [History Confirmed 01/01/23] (unknown) (no (unknown) (unknown) Signed By: (units (unk nown) date) unknown) (unknown) (no (unknown) (unknown) Smoking Status: (units (unknown) date) Former smoker unknown) (unknown) (no (unknown) (unknown) Temp 97.0 F L (units ( unknown) date) unknown) (unknown) (no (unknown) (unknown) Temp Source (units (un known) date) Temporal Artery unknown) Scan (unknown) (no (unknown) (unknown) This note may (units ( unknown) date) have been all or unknown) partially generated using voice recognition (unknown) (no (unknown) (unknown) Tobacco + (units (unkn own) date) Substance Use unknown) (unknown) (no (unknown) (unknown) Tobacco Status (units (unknown) date) unknown) (unknown) (no (unknown) (unknown) Visit Reasons: (units (unknown) date) TOBACCO BALER, History of unknown) Groin and oblique hernia 02 (unknown) (no (unknown) (unknown) Vitals (units (unkno wn) date) unknown) (unknown) (no (unknown) (unknown) Weight 184 lb (units ( unknown) date) unknown) (unknown) (no (unknown) (unknown) 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 unknown) (unknown) (no (unknown) (unknown) due for (units (unkno wn) date) colonoscopy. unknown) after his first one he was told to get them yearly. (unknown) (no (unknown) (unknown) fluticasone (units (un known) date) propionate 50 unknown) mcg/actuation nasal spray,suspension (Flonase Allergy (unknown) (no (unknown) (unknown) have occurred. (units (unknown) date) If there are any unknown) questions, please contact the Medical Records (unknown) (no (unknown) (unknown) hernia surgery (units (unknown) date) but never gotten unknown) better. (unknown) (no (unknown) (unknown) ibuprofen 200 mg (units (unknown) date) capsule 400 mg PO unknown) BID PRN 01/01/23 [History Confirmed 01/01/23] (unknown) (no (unknown) (unknown) may occur. (units (unk nown) date) Occasional unknown) wrong-word or 'sound-alike' substitutions may have (unknown) (no (unknown) (unknown) occurred due to (units (unknown) date) the inherent unknown) limitations of voice recognition software. Please (unknown) (no (unknown) (unknown) read the note (units ( unknown) date) carefully and unknown) recognize, using context, where these substitutions (unknown) (no (unknown) (unknown) software. (units (unkn own) date) Although every unknown) effort is made to edit content, director of sales support errors Result panel 7 (unknown) (no (unknown) (unknown) (no value) (units (unk nown) date) unknown) (unknown) (no (unknown) (unknown) 01/01/23 (units (unkno wn) date) unknown) (unknown) (no (unknown) (unknown) 12:54 (units (unkno wn) date) unknown) (unknown) (no (unknown) (unknown) [id number] (units (unkno wn) date) unknown) (unknown) (no (unknown) (unknown) 47 year old male (units (unknown) date) presents to unknown) clinic to establish care. (unknown) (no (unknown) (unknown) Age/Sex: 47 / M (units (unknown) date) Date of Service: unknown) (unknown) (no (unknown) (unknown) Allergies (units (unkn own) date) unknown) (unknown) (no (unknown) (unknown) Allergies: (units (unk nown) date) Reviewed unknown) (unknown) (no (unknown) (unknown) [place] (units ( unknown) date) [id number] unknown) (unknown) (no (unknown) (unknown) Attending Dr: (units ( unknown) date) Juanito Chapman D.O. unknown) (unknown) (no (unknown) (unknown) BMI 23.6 (units (unkno wn) date) unknown) (unknown) (no (unknown) (unknown) BP 129/79 (units (unkn own) date) unknown) (unknown) (no (unknown) (unknown) Blood Pressure (units (unknown) date) Location Lt unknown) brachial (unknown) (no (unknown) (unknown) Cardiovascular: (units (unknown) date) Negative.? unknown) (unknown) (no (unknown) (unknown) Chief Complaint: (units (unknown) date) establish care unknown) (unknown) (no (unknown) (unknown) Constitutional: (units (unknown) date) Negative.? unknown) (unknown) (no (unknown) (unknown) : 1975 (units (unknown) date) Acct:[id number] unknown) (unknown) (no (unknown) (unknown) Dept at (units (unkno wn) date) . unknown) (unknown) (no (unknown) (unknown) Documented By: (units (unknown) date) Juanito Chapman unknown) 01/01/23 1250 (unknown) (no (unknown) (unknown) Draft (units (unkno wn) date) unknown) (unknown) (no (unknown) (unknown) Endocrine: (units (unk nown) date) Negative.? unknown) (unknown) (no (unknown) (unknown) Family Practice (units (unknown) date) Office Visit unknown) (unknown) (no (unknown) (unknown) [facility] (units ([facility] date[facility] unknown) (unknown) (no (unknown) (unknown) Gastrointestinal (units (unknown) date) : Negative.? unknown) (unknown) (no (unknown) (unknown) Genitourinary: (units (unknown) date) Negative.? unknown) (unknown) (no (unknown) (unknown) Health (units (unkno wn) date) Management unknown) reviewed with patient: Yes (unknown) (no (unknown) (unknown) Health (units (unkno wn) date) Management unknown) (unknown) (no (unknown) (unknown) Height 6 ft 2 in (units (unknown) date) unknown) (unknown) (no (unknown) (unknown) I reviewed the (units (unknown) date) patient's Past unknown) Medical History, Problem List, Medications and (unknown) (no (unknown) (unknown) Intake Note: (units (u nknown) date) unknown) (unknown) (no (unknown) (unknown) Intake performed (units (unknown) date) by: Sue Galan unknown) (unknown) (no (unknown) (unknown) Intake (units (unkno wn) date) unknown) (unknown) (no (unknown) (unknown) Intake- Clincial (units (unknown) date) Staff unknown) (unknown) (no (unknown) (unknown) Loc: [facility] (units (unkno wn) date) unknown) (unknown) (no (unknown) (unknown) Medications (units (un known) date) unknown) (unknown) (no (unknown) (unknown) Medications: (units (u nknown) date) Reconciled unknown) (unknown) (no (unknown) (unknown) Neurological: (units ( unknown) date) Negative.? unknown) (unknown) (no (unknown) (unknown) No Known Drug (units ( unknown) date) Allergies Allergy unknown) (Unverified 01/01/23 12:51) (unknown) (no (unknown) (unknown) Note (units (unkno wn) date) unknown) (unknown) (no (unknown) (unknown) Note: (units (unkno wn) date) unknown) (unknown) (no (unknown) (unknown) Notes (units (unkno wn) date) unknown) (unknown) (no (unknown) (unknown) Objective: (units (unk nown) date) unknown) (unknown) (no (unknown) (unknown) Oxygen Delivery (units (unknown) date) Method room air unknown) (unknown) (no (unknown) (unknown) PFSH (units (unkno wn) date) unknown) (unknown) (no (unknown) (unknown) Patient: (units (unkno wn) date) Jose Cevallos unknown) MR#: [id number] (unknown) (no (unknown) (unknown) Position Sitting (units (unknown) date) unknown) (unknown) (no (unknown) (unknown) Pulse 69 (units (unkno wn) date) unknown) (unknown) (no (unknown) (unknown) Pulse Oximetry (units (unknown) date) (%) 98 unknown) (unknown) (no (unknown) (unknown) Pulse Source (units (u nknown) date) Monitor unknown) (unknown) (no (unknown) (unknown) Reason For Visit (units (unknown) date) unknown) (unknown) (no (unknown) (unknown) Relief) 2 spray (units (unknown) date) intranasal DAILY unknown) 01/01/23 [History Confirmed 01/01/23] (unknown) (no (unknown) (unknown) Respiratory: (units (u nknown) date) Negative.? unknown) (unknown) (no (unknown) (unknown) Review of (units (unkn own) date) Systems: unknown) (unknown) (no (unknown) (unknown) Signed By: (units (unk nown) date) unknown) (unknown) (no (unknown) (unknown) Smoking Status: (units (unknown) date) Former smoker unknown) (unknown) (no (unknown) (unknown) Social History (units (unknown) date) (including unknown) tobacco use status). (unknown) (no (unknown) (unknown) Subjective: (units (un known) date) unknown) (unknown) (no (unknown) (unknown) Temp 97.0 F L (units ( unknown) date) unknown) (unknown) (no (unknown) (unknown) Temp Source (units (un known) date) Temporal Artery unknown) Scan (unknown) (no (unknown) (unknown) This note may (units ( unknown) date) have been all or unknown) partially generated using voice recognition (unknown) (no (unknown) (unknown) Tobacco + (units (unkn own) date) Substance Use unknown) (unknown) (no (unknown) (unknown) Tobacco Status (units (unknown) date) unknown) (unknown) (no (unknown) (unknown) Visit Reasons: (units (unknown) date) TOBACCO BALER, History of unknown) Groin and oblique hernia 02 (unknown) (no (unknown) (unknown) Vital Signs: (units (u nknown) date) Reviewed unknown) (unknown) (no (unknown) (unknown) Vitals (units (unkno wn) date) unknown) (unknown) (no (unknown) (unknown) Voice (units (unkno wn) date) recognition unknown) software was used in the creation of this note. There may be (unknown) (no (unknown) (unknown) Weight 184 lb (units ( unknown) date) unknown) (unknown) (no (unknown) (unknown) [] (units (unkno wn) date) unknown) (unknown) (no (unknown) (unknown) 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 unknown) (unknown) (no (unknown) (unknown) due for (units (unkno wn) date) colonoscopy. unknown) after his first one he was told to get them yearly. (unknown) (no (unknown) (unknown) fluticasone (units (un known) date) propionate 50 unknown) mcg/actuation nasal spray,suspension (Flonase Allergy (unknown) (no (unknown) (unknown) have occurred. (units (unknown) date) If there are any unknown) questions, please contact the Medical Records (unknown) (no (unknown) (unknown) hernia surgery (units (unknown) date) but never gotten unknown) better. (unknown) (no (unknown) (unknown) ibuprofen 200 mg (units (unknown) date) capsule 400 mg PO unknown) BID PRN 01/01/23 [History Confirmed 01/01/23] (unknown) (no (unknown) (unknown) may occur. (units (unk nown) date) Occasional unknown) wrong-word or 'sound-alike' substitutions may have (unknown) (no (unknown) (unknown) occurred due to (units (unknown) date) the inherent unknown) limitations of voice recognition software. Please (unknown) (no (unknown) (unknown) read the note (units ( unknown) date) carefully and unknown) recognize, using context, where these substitutions (unknown) (no (unknown) (unknown) software. (units (unkn own) date) Although every unknown) effort is made to edit content, director of sales support errors (unknown) (no (unknown) (unknown) typographical (units ( unknown) date) errors as a unknown) result. Result panel 8 (unknown) (no (unknown) (unknown) (no value) (units (unk nown) date) unknown) (unknown) (no (unknown) (unknown) (1) Colon cancer (units (unknown) date) screening: unknown) (unknown) (no (unknown) (unknown) (2) Status post (units (unknown) date) hernia repair: unknown) (unknown) (no (unknown) (unknown) (3) Hand injury: (units (unknown) date) unknown) (unknown) (no (unknown) (unknown) (4) Chronic groin (units (unknown) date) pain: unknown) (unknown) (no (unknown) (unknown) (5) Chronic low (units (unknown) date) back pain: unknown) (unknown) (no (unknown) (unknown) (6) Chronic neck (units (unknown) date) pain: unknown) (unknown) (no (unknown) (unknown) (L5). Normal (units (u nknown) date) quadriceps (L3 or unknown) L4). Normal hamstring. Normal iliopsoas. (unknown) (no (unknown) (unknown) - Lumbago with (units (unknown) date) sciatica, unknown) unspecified side; G89.29 - Other chronic pain (unknown) (no (unknown) (unknown) -follow up (units (unk nown) date) annually, as unknown) needed any concerns (unknown) (no (unknown) (unknown) 01/01/23 1328 (units ( unknown) date) unknown) (unknown) (no (unknown) (unknown) 01/01/23 (units (unkno wn) date) unknown) (unknown) (no (unknown) (unknown) 1. He states that (units (unknown) date) on his previous unknown) colonoscopy he had extensive polyps. It was (unknown) (no (unknown) (unknown) . We will (units (unknown) date) have General unknown) surgery evaluate his options for a possible left (unknown) (no (unknown) (unknown) 12:54 (units (unkno wn) date) unknown) (unknown) (no (unknown) (unknown) [id number] (units (unkno wn) date) unknown) (unknown) (no (unknown) (unknown) 2. He had (units (unkn own) date) bilateral inguinal unknown) hernias. He had bilateral repair. The left repair (unknown) (no (unknown) (unknown) 3. He has some (units (unknown) date) chronic low back unknown) and neck pain. 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 Discussed (units (unknown) date) supportive care. unknown) At this point he feels he is doing well. If (unknown) (no (unknown) (unknown) 47 year old male (units (unknown) date) presents to clinic unknown) to establish care. (unknown) (no (unknown) (unknown) Age/Sex: 47 / M (units (unknown) date) Date of Service: unknown) (unknown) (no (unknown) (unknown) Allergies (units (unkn own) date) unknown) (unknown) (no (unknown) (unknown) Allergies: (units (unk nown) date) Reviewed unknown) (unknown) (no (unknown) (unknown) [place], [place] (units ( unknown) date) [id number] unknown) (unknown) (no (unknown) (unknown) Assessment + Plan (units (unknown) date) unknown) (unknown) (no (unknown) (unknown) Attending Dr: Juanito (units (unknown) date) Adela Menezes.Gail unknown) (unknown) (no (unknown) (unknown) BMI 23.6 (units (unkno wn) date) unknown) (unknown) (no (unknown) (unknown) BP 129/79 (units (unkn own) date) unknown) (unknown) (no (unknown) (unknown) Back pain (units (unkn own) date) laterality: unknown) midline Sciatica presence: with sciatica (unknown) (no (unknown) (unknown) Blood Pressure (units (unknown) date) Location Lt unknown) brachial (unknown) (no (unknown) (unknown) C-Spine: (units (unkno wn) date) unknown) (unknown) (no (unknown) (unknown) CARDIAC: Regular (units (unknown) date) rate and rhythm. unknown) S1, S2 normal, no murmur.? No edema. (unknown) (no (unknown) (unknown) CHEST: Normal (units ( unknown) date) respiratory effort unknown) (unknown) (no (unknown) (unknown) Cardiovascular: (units (unknown) date) Negative.? unknown) (unknown) (no (unknown) (unknown) Chief Complaint: (units (unknown) date) establish care unknown) (unknown) (no (unknown) (unknown) Chronic low back (units (unknown) date) pain unknown) (unknown) (no (unknown) (unknown) Chronic neck pain (units (unknown) date) unknown) (unknown) (no (unknown) (unknown) Code(s): S69.92XD (units (unknown) date) - Unspecified unknown) injury of left wrist, hand and finger(s), (unknown) (no (unknown) (unknown) Colon polyp (units (un known) date) unknown) (unknown) (no (unknown) (unknown) Constitutional: (units (unknown) date) Negative.? unknown) (unknown) (no (unknown) (unknown) : 1975 (units (unknown) date) Acct:[id number] unknown) (unknown) (no (unknown) (unknown) DTR's: Normal (units ( unknown) date) patellar (L3 or unknown) L4). Normal ankle (S1). (unknown) (no (unknown) (unknown) Dept at (units (unkno wn) date) . unknown) (unknown) (no (unknown) (unknown) Documented By: (units (unknown) date) Juanito Chapman unknown) 01/01/23 1250 (unknown) (no (unknown) (unknown) EYES: PERRL, EOMI (units (unknown) date) and nonicteric unknown) (unknown) (no (unknown) (unknown) Encounter type: (units (unknown) date) subsequent unknown) encounter Laterality: left Qualified (unknown) (no (unknown) (unknown) Endocrine: (units (unk nown) date) Negative.? unknown) (unknown) (no (unknown) (unknown) Family Practice (units (unknown) date) Office Visit unknown) (unknown) (no (unknown) (unknown) [facility] (units (unknown) date[facility] unknown) (unknown) (no (unknown) (unknown) G89.29 - Other (units (unknown) date) chronic pain unknown) (unknown) (no (unknown) (unknown) GENERAL: Well (units ( unknown) date) developed, well unknown) nourished.? Cooperative with exam.? Patient is in (unknown) (no (unknown) (unknown) Gastrointestinal: (units (unknown) date) Negative.? unknown) (unknown) (no (unknown) (unknown) Genitourinary: (units (unknown) date) Negative.? unknown) (unknown) (no (unknown) (unknown) HEAD: Atraumatic, (units (unknown) date) Normocephalic unknown) (unknown) (no (unknown) (unknown) Health Management (units (unknown) date) reviewed with unknown) patient: Yes (unknown) (no (unknown) (unknown) Health Management (units (unknown) date) unknown) (unknown) (no (unknown) (unknown) Height 6 ft 2 in (units (unknown) date) unknown) (unknown) (no (unknown) (unknown) I reviewed the (units (unknown) date) patient's Past unknown) Medical History, Problem List, Medications and (unknown) (no (unknown) (unknown) Inspection: (units (un known) date) Non-tender c-spine unknown) or paraspinous muscles. (unknown) (no (unknown) (unknown) Inspection: (units (un known) date) Non-tender lumbar unknown) spine or paraspinous muscles. (unknown) (no (unknown) (unknown) Intake Note: (units (u nknown) date) unknown) (unknown) (no (unknown) (unknown) Intake performed (units (unknown) date) by: Sue Galan unknown) (unknown) (no (unknown) (unknown) Intake (units (unkno wn) date) unknown) (unknown) (no (unknown) (unknown) Intake- Clincial (units (unknown) date) Staff unknown) (unknown) (no (unknown) (unknown) LUNGS: Clear all (units (unknown) date) lung shaw, unknown) Bilaterally (unknown) (no (unknown) (unknown) Laterality: left (units (unknown) date) Qualified Code(s): unknown) R10.32 - Left lower quadrant pain; (unknown) (no (unknown) (unknown) Loc: [facility] (units (unkno wn) date) unknown) (unknown) (no (unknown) (unknown) Lumbar: (units (unkno wn) date) unknown) (unknown) (no (unknown) (unknown) MUSKULOSKELETAL: (units (unknown) date) Normal gait. unknown) (unknown) (no (unknown) (unknown) Medical History (units (unknown) date) (Updated 01/01/23 unknown) @ 13:26 by Juanito Chapman DO) (unknown) (no (unknown) (unknown) Medications (units (un known) date) unknown) (unknown) (no (unknown) (unknown) Medications: (units (u nknown) date) Reconciled unknown) (unknown) (no (unknown) (unknown) Muscle Testing: (units (unknown) date) Normal unknown) deltoid/biceps (C5). Normal triceps (C7). (unknown) (no (unknown) (unknown) NECK: Full range (units (unknown) date) of motion, unknown) lymphadenopathy absent, supple (unknown) (no (unknown) (unknown) NEURO EXAM: Alert (units (unknown) date) and oriented x 3.? unknown) (unknown) (no (unknown) (unknown) Neurological: (units ( unknown) date) Negative.? unknown) (unknown) (no (unknown) (unknown) No Known Drug (units ( unknown) date) Allergies Allergy unknown) (Unverified 01/01/23 12:51) (unknown) (no (unknown) (unknown) Note (units (unkno wn) date) unknown) (unknown) (no (unknown) (unknown) Note: (units (unkno wn) date) unknown) (unknown) (no (unknown) (unknown) Notes (units (unkno wn) date) unknown) (unknown) (no (unknown) (unknown) Objective: (units (unk nown) date) unknown) (unknown) (no (unknown) (unknown) Orders: (units (unkno wn) date) unknown) (unknown) (no (unknown) (unknown) Oxygen Delivery (units (unknown) date) Method room air unknown) (unknown) (no (unknown) (unknown) PFSH (units (unkno wn) date) unknown) (unknown) (no (unknown) (unknown) PSYCH: judgement (units (unknown) date) normal, unknown) orientation normal, affect/mood normal and memory (unknown) (no (unknown) (unknown) Patient is here (units (unknown) date) to establish care. unknown) He has several issues. (unknown) (no (unknown) (unknown) Patient: (units (unkno wn) date) Jose Cevallos MR#: unknown) [id number] (unknown) (no (unknown) (unknown) Plan (units (unkno wn) date) unknown) (unknown) (no (unknown) (unknown) Position Sitting (units (unknown) date) unknown) (unknown) (no (unknown) (unknown) Pulse 69 (units (unkno wn) date) unknown) (unknown) (no (unknown) (unknown) Pulse Oximetry (units (unknown) date) (%) 98 unknown) (unknown) (no (unknown) (unknown) Pulse Source (units (u nknown) date) Monitor unknown) (unknown) (no (unknown) (unknown) Qualifiers: (units (un known) date) unknown) (unknown) (no (unknown) (unknown) Range of Motion: (units (unknown) date) Normal unknown) flexion/extension. Normal rotation. Normal lateral (unknown) (no (unknown) (unknown) Reason For Visit (units (unknown) date) unknown) (unknown) (no (unknown) (unknown) Referral (units (unkno wn) date) Colonoscopy K63.5 unknown) - Polyp of colon, Z12.11 - Encounter for screening (unknown) (no (unknown) (unknown) Referral General (units (unknown) date) Surgery Z87.19 - unknown) Personal history of other diseases of the (unknown) (no (unknown) (unknown) Referrals (units (unkn own) date) unknown) (unknown) (no (unknown) (unknown) Relief) 2 spray (units (unknown) date) intranasal DAILY unknown) 01/01/23 [History Confirmed 01/01/23] (unknown) (no (unknown) (unknown) Respiratory: (units (u nknown) date) Negative.? unknown) (unknown) (no (unknown) (unknown) Review of (units (unkn own) date) Systems: unknown) (unknown) (no (unknown) (unknown) SKIN:? No rashes (units (unknown) date) on face or arms. unknown) (unknown) (no (unknown) (unknown) Sciatica (units (unkno wn) date) laterality: unknown) sciatica laterality unspecified Qualified Code(s): M54.40 (unknown) (no (unknown) (unknown) Signed By: (units (unk nown) date) <Electronically unknown) signed by Juanito Chapman> (unknown) (no (unknown) (unknown) Signed (units (unkno wn) date) unknown) (unknown) (no (unknown) (unknown) Smoking Status: (units (unknown) date) Former smoker unknown) (unknown) (no (unknown) (unknown) Social History (units (unknown) date) (including tobacco unknown) use status). (unknown) (no (unknown) (unknown) Status post (units (un known) date) hernia repair unknown) (unknown) (no (unknown) (unknown) Status: Acute (units ( unknown) date) unknown) (unknown) (no (unknown) (unknown) Strength Testing: (units (unknown) date) Normal unknown) dorsiflexion (L4). Normal extensor hallucis longus (unknown) (no (unknown) (unknown) Subjective: (units (un known) date) unknown) (unknown) (no (unknown) (unknown) Surgical History (units (unknown) date) (Updated 01/01/23 unknown) @ 13:07 by Juanito Chapman DO) (unknown) (no (unknown) (unknown) Temp 97.0 F L (units ( unknown) date) unknown) (unknown) (no (unknown) (unknown) Temp Source (units (un known) date) Temporal Artery unknown) Scan (unknown) (no (unknown) (unknown) This note may (units ( unknown) date) have been all or unknown) partially generated using voice recognition (unknown) (no (unknown) (unknown) Tobacco + (units (unkn own) date) Substance Use unknown) (unknown) (no (unknown) (unknown) Tobacco Status (units (unknown) date) unknown) (unknown) (no (unknown) (unknown) Visit Reasons: (units (unknown) date) TOBACCO BALER, History of unknown) Groin and oblique hernia 02 (unknown) (no (unknown) (unknown) Vital Signs: (units (u nknown) date) Reviewed unknown) (unknown) (no (unknown) (unknown) Vitals (units (unkno wn) date) unknown) (unknown) (no (unknown) (unknown) Voice recognition (units (unknown) date) software was used unknown) in the creation of this note. There may be (unknown) (no (unknown) (unknown) Weight 184 lb (units ( unknown) date) unknown) (unknown) (no (unknown) (unknown) a options to do (units (unknown) date) another procedure. unknown) (unknown) (no (unknown) (unknown) a stitch being in (units (unknown) date) there to help hold unknown) everything together. 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 unknown) (unknown) (no (unknown) (unknown) bend. (units (unkno wn) date) unknown) (unknown) (no (unknown) (unknown) daily functions (units (unknown) date) without too much unknown) difficulty. (unknown) (no (unknown) (unknown) did have some (units ( unknown) date) bloody stools unknown) depending on his dietary choices. He has learned to (unknown) (no (unknown) (unknown) digestive system, (units (unknown) date) Z98.890 - Other unknown) specified postprocedural states (unknown) (no (unknown) (unknown) does bother him (units (unknown) date) frequently and he unknown) would like it potentially address if there is (unknown) (no (unknown) (unknown) due for (units (unkno wn) date) colonoscopy. after unknown) his first one he was told to get them yearly. (unknown) (no (unknown) (unknown) extremities. In (units (unknown) date) generally takes unknown) NSAIDs, stays active and is able to do his (unknown) (no (unknown) (unknown) fluticasone (units (un known) date) propionate 50 unknown) mcg/actuation nasal spray,suspension (Flonase Allergy (unknown) (no (unknown) (unknown) for malignant (units ( unknown) date) neoplasm of colon, unknown) Z87.19 - Personal history of other diseases of (unknown) (no (unknown) (unknown) have occurred. If (units (unknown) date) there are any unknown) questions, please contact the Medical Records (unknown) (no (unknown) (unknown) he does have (units (u nknown) date) anymore issues we unknown) can consider imaging, physical therapy. (unknown) (no (unknown) (unknown) hernia repair. (units (unknown) date) unknown) (unknown) (no (unknown) (unknown) hernia surgery (units (unknown) date) but never gotten unknown) better. (unknown) (no (unknown) (unknown) ibuprofen 200 mg (units (unknown) date) capsule 400 mg PO unknown) BID PRN 01/01/23 [History Confirmed 01/01/23] (unknown) (no (unknown) (unknown) may occur. (units (unk nown) date) Occasional unknown) wrong-word or 'sound-alike' substitutions may have (unknown) (no (unknown) (unknown) modify his diet (units (unknown) date) appropriately, get unknown) enough fiber and has not had any issues for (unknown) (no (unknown) (unknown) no apparent (units (un known) date) distress. unknown) (unknown) (no (unknown) (unknown) normal (units (unkno wn) date) unknown) (unknown) (no (unknown) (unknown) occurred due to (units (unknown) date) the inherent unknown) limitations of voice recognition software. Please (unknown) (no (unknown) (unknown) read the note (units ( unknown) date) carefully and unknown) recognize, using context, where these substitutions (unknown) (no (unknown) (unknown) recommended he (units (unknown) date) has annual unknown) colonoscopies. He is behind schedule. At the time he (unknown) (no (unknown) (unknown) software. (units (unkn own) date) Although every unknown) effort is made to edit content, director of sales support errors (unknown) (no (unknown) (unknown) some time. (units (unk nown) date) unknown) (unknown) (no (unknown) (unknown) subsequent (units (unk nown) date) encounter unknown) (unknown) (no (unknown) (unknown) the digestive (units ( unknown) date) system, Z98.890 - unknown) Other specified postprocedural states (unknown) (no (unknown) (unknown) the surgery in (units (unknown) date) 2019. States that unknown) the previous surgeon mentioned something about (unknown) (no (unknown) (unknown) typographical (units ( unknown) date) errors as a unknown) result. (unknown) (no (unknown) (unknown) was more (units (unkno wn) date) extensive than the unknown) right. He is had persistent left groin pain since (unknown) (no (unknown) (unknown) worked hard all (units (unknown) date) his life. He has unknown) some occasional radiation of pain down his Social History date description facility 2022-12-21 00:00 Ex-smoker (finding) [facility] 2023-01-01 00:00 Ex-smoker (finding) [facility] Vital Signs date measurement value units 2022-12-21 00:00 BMI 23.8 kg/m2 2022-12-21 00:00 BP_diastolic 80 mmHg 2022-12-21 00:00 BP_systolic 124 mmHg 2022-12-21 00:00 heart_rate 54 /min 2022-12-21 00:00 height_metric 187.96 cm 2022-12-21 00:00 height_standard 74 in 2022-12-21 00:00 o2_saturation 99 % 2022-12-21 00:00 respiration_rate 14 /min 2022-12-21 00:00 temperature_metric 36.56 C 2022-12-21 00:00 temperature_standard 97.8 F 2022-12-21 00:00 weight_metric 83.99 kg 2022-12-21 00:00 weight_standard 185.17 lb 2023-01-01 00:00 BMI 23.6 kg/m2 2023-01-01 00:00 BP_diastolic 79 mmHg 2023-01-01 00:00 BP_systolic 129 mmHg 2023-01-01 00:00 heart_rate 69 /min 2023-01-01 00:00 height_metric 187.96 cm 2023-01-01 00:00 height_standard 74 in 2023-01-01 00:00 o2_saturation 98 % 2023-01-01 00:00 temperature_metric 36.11 C 2023-01-01 00:00 temperature_standard 97 F 2023-01-01 00:00 weight_metric 83.46 kg 2023-01-01 00:00 weight_standard 184 lb
== END 2023-01-14 17:26 | disposition home or self-care (01) ==
LOC: ED 16:41
DX: S61.011A Laceration without foreign body of right thumb without damage to nail, initial encounter (principal); W27.0XXA Contact with workbench tool, initial encounter; Y93.89 Activity, other specified; Y99.0 Civilian activity done for income or pay; Z87.891 Personal history of nicotine dependence
CPT/HCPCS: 12001; 90471; 99283